=== PATIENT | male | born 1990 ===

== ENCOUNTER 2017-08-08 00:50 | Emergency (ER) | payer SELFPAY ==
--- NOTE | 2017-08-08 00:55 | PD ---
HPI Chief Complaint: ETOH Time Seen by Provider: 00:53 Travel History International Travel<30 days: No Contact w/Intl Traveler<30days: No Traveled to known affect area: No History of Present Illness HPI This is a 27-year-old male who presents under a Quispe act initiated by the [employer]. The patient reports that tonight he was drinking heavily at "[employer]" which is a nightclub. Afterwards he was seen outside of the building intoxicated and therefore he was brought here by paramedics. He reports that he feels intoxicated. He denies any injury. He denies any headache, head trauma, drug use. He has no other complaints at this time. [facility] Social History Alcohol Use: No Tobacco Use: Yes Allergies-Medications (Allergen,Severity, Reaction): Coded Allergies: No Known Allergies (Unverified , 08/08/17) Reported Meds & Prescriptions Reported Meds & Active Scripts Active No Active Prescriptions or Reported Medications Review of Systems Except as stated in HPI: all other systems reviewed are Neg Physical Exam Narrative GENERAL: Well-developed well-nourished young male who is in no acute distress SKIN: Warm and dry. HEAD: Atraumatic. Normocephalic. EYES: Pupils equal and round. No scleral icterus. No injection or drainage. ENT: No nasal bleeding or discharge. Mucous membranes pink and moist. NECK: Trachea midline. No JVD. CARDIOVASCULAR: Regular rate and rhythm. No murmur appreciated. RESPIRATORY: No accessory muscle use. Clear to auscultation. Breath sounds equal bilaterally. GASTROINTESTINAL: Abdomen soft, non-tender, nondistended. Hepatic and splenic margins not palpable. MUSCULOSKELETAL: No obvious deformities. No clubbing. No cyanosis. No edema. NEUROLOGICAL: Awake and alert. No obvious cranial nerve deficits. Motor grossly within normal limits slurred speech, obviously intoxicated. Data Data Last Documented VS Vital Signs Date Time Temp Pulse Resp B/P (MAP) Pulse Ox O2 Delivery O2 Flow Rate FiO2 08/08/17 00:57 76 16 112/73 (86) 100 MDM Medical Decision Making Medical Screen Exam Complete: Yes Emergency Medical Condition: Yes Medical Record Reviewed: Yes Differential Diagnosis Alcohol intoxication, closed head injury, polysubstance abuse Narrative Course 27-year-old male presents after drinking heavily at a bar. He is under a Quispe act. He has no evidence of trauma. He is awake and alert but obviously intoxicated. He will remain here until he is clinically sober and then he will be discharged. Diagnosis Primary Impression: Alcohol intoxication Med/Other Pt SpecificInfo: No Change to Meds Scripts No Active Prescriptions or Reported Meds Disposition: 01 DISCHARGE HOME Condition: Stable Saleem Arias Aug 08, 2017 00:55
[2017-08-08 00:57] VITALS: BP 112/73; PULSE 76; RESP 16; O2SAT 100
== END 2017-08-08 05:38 | disposition home or self-care (01) ==
LOC: NEDAMB 00:50
DX: F10.129 Alcohol abuse with intoxication, unspecified (principal); Z72.0 Tobacco use
CPT/HCPCS: 99283